=== PATIENT | female | born 1970 | race Caucasian/White ===

== ENCOUNTER 2023-08-09 15:29 | Emergency (ER) | payer OTHER, SELFPAY | END 2023-08-09 17:13 | disposition home or self-care (01) | LOC: NAV ERS 15:29 | DX: S92.511A Displaced fracture of proximal phalanx of right lesser toe(s), initial encounter for closed fracture (principal); I10 Essential (primary) hypertension; W18.30XA Fall on same level, unspecified, initial encounter; Y93.K9 Activity, other involving animal care ==

== ENCOUNTER 2023-09-14 21:58 | Emergency (ER) | payer BC, SELFPAY ==
[2023-09-14] MEDS ORDERED: Dexamethasone 4 mg/ml Vial ONE (22:38)
[2023-09-14] MEDS ORDERED: Ketorolac Tromethamine 30 MG (1 mL) VIAL ONE (22:38)
[2023-09-14] MEDS ORDERED: Ondansetron PF 4 MG/2 ML Vial ONE (22:38)
[2023-09-14 23:10] LABS: Influenza A by NAA Not Detected (NotDetected); Influenza B by NAA Not Detected (NotDetected); SARS-CoV-2 NAA Rapid Test Not Detected (NotDetected)
== END 2023-09-14 23:39 | disposition home or self-care (01) ==
LOC: NAV ERS 21:58
DX: J98.01 Acute bronchospasm (principal); J02.9 Acute pharyngitis, unspecified; J01.90 Acute sinusitis, unspecified; I10 Essential (primary) hypertension
CPT/HCPCS: 71046; 87081; 87430; 96374; 96375; J1100; J1885; J2405